=== PATIENT | female | born 1980 | race Caucasian/White ===

== ENCOUNTER 2020-06-02 03:07 | Emergency (ER) | payer SELFPAY | END 2020-06-02 06:40 | disposition left against medical advice (07) | LOC: ER1 03:07 | DX: S01.112A Laceration without foreign body of left eyelid and periocular area, initial encounter (principal); Y04.2XXA Assault by strike against or bumped into by another person, initial encounter | CPT/HCPCS: 70450; 70486; 72125; 81001; 84703; 99284; G0480 ==